=== PATIENT | male | born 2000 | race Caucasian/White ===

== ENCOUNTER 2022-08-05 00:15 | Emergency (ER) | payer MEDICAID ==
--- NOTE | 2022-08-05 00:50 | NUR ---
CALLED TO TRIAGE NOT IN WAITING ROOM
--- NOTE | 2022-08-05 01:21 | NUR ---
NO LONGER IN THE WAITING ROOM WHEN CALLED.
== END 2022-08-05 01:22 | disposition left against medical advice (07) ==
LOC: ER 00:18
DX: Z53.21 Procedure and treatment not carried out due to patient leaving prior to being seen by health care provider (principal)

== ENCOUNTER 2022-08-05 09:23 | Emergency (ER) | payer MEDICAID ==
[~2022-08-05] VITALS: Ht 175.3 cm; Wt 74.8 kg
[2022-08-05] MEDS ORDERED: LORAZEPAM 1 MG TABLET ONE (09:47)
--- NOTE | 2022-08-05 09:51 | NUR ---
PT ON BED, PUT ON MONITOR AND PULSE. PT IS ANXIOUS BUT NOT IN DISTRESS. MEDS GIVEN PO. TOLERATED WELL
[2022-08-05] MEDS ORDERED: LORAZEPAM 1 MG TABLET PO ONE (10:00)
--- NOTE | 2022-08-05 10:49 | NUR ---
Patient discharged to home in stable condition. Written and verbal after care instructions given. Patient verbalizes understanding of instruction.
[2022-08-05 10:50] VITALS: BP 128/80
== END 2022-08-05 10:50 | disposition home or self-care (01) ==
LOC: ER 09:26
DX: F41.9 Anxiety disorder, unspecified (principal); F17.200 Nicotine dependence, unspecified, uncomplicated; Z60.2 Problems related to living alone